=== PATIENT | female | born 1955 | race Caucasian/White ===

== ENCOUNTER → 2016-10-01 | Outpatient (REF) | payer SELFPAY | LOC: M LAB REF 09:11 | PROVIDERS: ATTEND Physician Assistant | DX: N39.0 Urinary tract infection, site not specified (principal) ==

== ENCOUNTER → 2017-02-28 | Outpatient (REF) | payer OTHER ==
[2017-02-28 11:27] LABS: MEAN CORPUSCULAR HEMOGLOBIN 31.7 pg (27.0-33.0); MEAN CORPUSCULAR HGB CONC 33.5 g/dl (32.0-36.5); MEAN CORPUSCULAR VOLUME 94.7 fl (80.0-96.0); RED CELL DISTRIBUTION WIDTH 13.9 % (11.5-14.5); WHITE BLOOD COUNT 9.8 K/mm3 (4.0-10.0)
[2017-02-28 12:35] LABS: ALBUMIN 3.5 GM/DL (3.2-5.2); ALBUMIN/GLOBULIN RATIO 0.95 (1.00-1.93); ALKALINE PHOSPHATASE 99 U/L (45-117); ALT/SGPT 31 U/L (12-78); ANION GAP 7 MEQ/L (8-16); AST/SGOT 18 U/L (15-37); BILIRUBIN,TOTAL 0.5 MG/DL (0.2-1.0); BLOOD UREA NITROGEN 12 MG/DL (7-18); CALCIUM LEVEL 8.9 MG/DL (8.8-10.2); CARBON DIOXIDE LEVEL 28 MEQ/L (21-32); CHLORIDE LEVEL 103 MEQ/L (98-107); CHOLESTEROL LEVEL 248 MG/DL (<200); CREATININE FOR GFR 0.73 MG/DL (0.55-1.02); GLOMERULAR FILTRATION RATE > 60.0 (>45); GLUCOSE, FASTING 100 MG/DL (80-110); POTASSIUM SERUM 4.4 MEQ/L (3.5-5.1); SODIUM LEVEL 138 MEQ/L (136-145); TOTAL PROTEIN 7.2 GM/DL (6.4-8.2); TRIGLYCERIDES LEVEL 385 MG/DL (<150)
== END ==
LOC: M SFHCCLAY 09:20
PROVIDERS: ATTEND Nurse Practitioner Family
DX: E78.4 Other hyperlipidemia (principal); I10 Essential (primary) hypertension

== ENCOUNTER → 2017-08-02 | Outpatient (REF) | payer OTHER ==
[~2017-08-02] MED LIST: ATEN100T PO; MOVE1TAB PO; ONE1MIS PO; ONETAB33 PO; SPIR25TA2 PO
[2017-08-02 12:13] LABS: POTASSIUM SERUM 3.9 MEQ/L (3.5-5.1)
== END ==
LOC: M SFHCCLAY 08:48
PROVIDERS: ATTEND Nurse Practitioner Family
DX: E87.6 Hypokalemia (principal); E78.4 Other hyperlipidemia

== ENCOUNTER → 2018-12-26 | Outpatient (REF) | payer OTHER ==
[~2018-12-26] MED LIST changes: +SPIR-10 PO; -SPIR25TA2 PO
[2018-12-26 11:31] LABS: BASO # 0.1 10^3/uL (0.0-0.2); BASO % 0.5 % (0.0-1.0); EOS # 0.3 10^3/uL (0.0-0.50); EOS % 3.4 % (0.0-3.0); HEMATOCRIT 46.2 % (36.0-47.0); HEMOGLOBIN 15.4 g/dl (12.0-15.5); LYMPH # 3.7 10^3/uL (1.5-4.5); LYMPH % 39.2 % (24.0-44.0); MEAN CORPUSCULAR HEMOGLOBIN 31.6 pg (27.0-33.0); MEAN CORPUSCULAR HGB CONC 33.3 g/dl (32.0-36.5); MEAN CORPUSCULAR VOLUME 94.9 fl (80.0-96.0); MONO # 0.7 10^3/uL (0.0-0.8); MONO % 7.2 % (0.0-5.0); NEUTROPHILS # 4.7 10^3/uL (1.8-7.7); NEUTROPHILS % 49.4 % (36.0-66.0); PLATELET COUNT, AUTOMATED 289 10^3/uL (150-450); RED BLOOD COUNT 4.87 10^6/uL (4.00-5.40); WHITE BLOOD COUNT 9.4 10^3/uL (4.0-10.0)
[2018-12-26 11:59] LABS: ALBUMIN 3.6 GM/DL (3.2-5.2); ALT/SGPT 27 U/L (12-78); BILIRUBIN,TOTAL 0.3 MG/DL (0.2-1.0); BLOOD UREA NITROGEN 19 MG/DL (7-18); CALCIUM LEVEL 8.3 MG/DL (8.8-10.2); CARBON DIOXIDE LEVEL 28 MEQ/L (21-32); CHLORIDE LEVEL 106 MEQ/L (98-107); CHOLESTEROL LEVEL 232 MG/DL (<200); CHOLESTEROL RISK RATIO 4.833 (<5); CREATININE FOR GFR 0.77 MG/DL (0.55-1.30); GLOMERULAR FILTRATION RATE > 60.0 (>45); GLUCOSE, FASTING 105 MG/DL (70-100); HDL CHOLESTEROL 48 MG/DL (>40); LDL CHOLESTEROL 118 MG/DL (<100); NON-HDL-C 184 MG/DL; SODIUM LEVEL 140 MEQ/L (136-145); TOTAL PROTEIN 6.9 GM/DL (6.4-8.2); TRIGLYCERIDES LEVEL 330 MG/DL (<150)
[2018-12-26 19:18] LABS: APPEARANCE, URINE HAZY (CLEAR); BACTERIA, URINE AUTO 1+ (NEGATIVE); BILIRUBIN, URINE AUTO NEGATIVE (NEGATIVE); BLOOD, URINE BLOOD 3+ (NEGATIVE); COLOR, URINE YELLOW (YELLOW); GLUCOSE, URINE (UA) AUTO NEGATIVE (NEGATIVE); KETONE, URINE AUTO NEGATIVE (NEGATIVE); LEUKOCYTE ESTERASE, URINE AUTO 1+ (NEGATIVE); MUCUS, URINE SMALL (NEGATIVE); NITRITE, URINE AUTO NEGATIVE (NEGATIVE); PROTEIN, URINE AUTO NEGATIVE (NEGATIVE); RBC, URINE AUTO 83 /HPF (0-3); SPECIFIC GRAVITY URINE AUTO 1.018 (1.002-1.035); SQUAMOUS EPITHELIAL CELL UR AU 0 /HPF (0-6); UROBILINOGEN, URINE AUTO 0.2 mg/dL (0.0-2.0); WBC, URINE AUTO 64 /HPF (0-3)
== END ==
LOC: M SFHCCLAY 07:30
PROVIDERS: ATTEND Nurse Practitioner Family
DX: M54.5 Low back pain (principal); E78.49 Other hyperlipidemia; R31.9 Hematuria, unspecified

== ENCOUNTER → 2019-01-03 | Outpatient (CLI) | payer OTHER ==
--- NOTE | 2019-01-03 13:55 | REP ---
Cervical spine seven views: There are no comparisons. Vertebral body heights, interspacing alignment are normal C1-C7. T1 is obscured by the shoulders. The facets are normally aligned. The prevertebral soft tissues are unremarkable. There is no listhesis on flexion or extension. The odontoid view is unremarkable. There is bilateral mild bony foraminal encroachment at C6-7 bilaterally. Impression: Mild bony foraminal encroachment at C6-7 bilaterally. Kilos obscured by the shoulders. Followup MRI might be considered for further evaluation of these findings. Electronically Signed by Mark Guillen MD 01/03/2019 01:46 P
--- NOTE | 2019-01-03 13:56 | REP ---
Right shoulder three views: There are no comparisons. There is acromioclavicular osteoarthritis. The glenohumeral joint is unremarkable. Mineralization is normal. There are no calcifications or foreign bodies. Impression: Acromioclavicular osteoarthritis. Electronically Signed by Mark Guillen MD 01/03/2019 01:47 P
--- NOTE | 2019-01-03 13:59 | REP ---
Lumbar spine five views: There are no comparisons. There are numerous bilateral calcifications, likely renal calcifications, however, some of the calcifications are projected over the right ureteral area. Follow-up CT might be considered for further evaluation of these calcifications. There are surgical clips in the abdominal right upper quadrant. Vertebral body heights, interspacing alignment are normal. The pedicles are unremarkable. The facets are unremarkable. The sacroiliac articulations are unremarkable. There are numerous calcifications in the pelvis, nonspecific, ureteral versus phleboliths. Impression: Essentially negative lumbar spine. However, there are numerous calcifications in the abdomen and pelvis as described, possibly renal/ureteral calculi. Follow-up CT may be considered for further evaluation. Electronically Signed by Mark Guillen MD 01/03/2019 01:50 P
== END ==
LOC: M CLY 12:33
PROVIDERS: ATTEND Nurse Practitioner Family
DX: M19.011 Primary osteoarthritis, right shoulder (principal); R93.89 Abnormal findings on diagnostic imaging of other specified body structures; R19.00 Intra-abdominal and pelvic swelling, mass and lump, unspecified site

== ENCOUNTER → 2019-01-13 | Outpatient (CLI) | payer OTHER ==
--- NOTE | 2019-01-13 14:18 | REP ---
RENAL ULTRASOUND: Real-time sonographic evaluation of the kidneys is performed. The kidneys are normal in size and echotexture, right kidney measuring 12.9 x 5.9 x 5.6 cm and left kidney 11.4 x 6.6 x 7.1 cm. There is mild right hydronephrosis. There is moderate left hydronephrosis. There are multiple bilateral intrarenal calculi. Largest on the right is in the renal pelvis 1.6 cm in diameter. A parapelvic cyst in the upper pole on the right measures 1.9 cm in diameter. There is an 8 mm cyst in the right lower pole. Exophytic cyst of the upper pole of the left kidney measures 5 cm in diameter. 2 cm calculus is seen in the region of the left renal pelvis. Multiple other smaller stones are seen bilaterally. The resistive index of the right kidney is 0.58 and of the left kidney 0.66 with duplex Doppler evaluation. Urinary bladder is empty. IMPRESSION: Mild right hydronephrosis. Moderate left hydronephrosis. Multiple bilateral renal calculi as discussed above as well as a few renal cysts. Electronically Signed by Mark Lucia MD 01/13/2019 05:42 P
== END ==
LOC: M RAD 10:53
PROVIDERS: ATTEND Nurse Practitioner Family
DX: N13.39 Other hydronephrosis (principal); N20.0 Calculus of kidney; N28.1 Cyst of kidney, acquired

== ENCOUNTER → 2019-01-24 | Outpatient (CLI) | payer OTHER ==
[2019-01-24 18:36] LABS: BLOOD UREA NITROGEN 14 MG/DL (7-18); CALCIUM LEVEL 8.8 MG/DL (8.8-10.2); CARBON DIOXIDE LEVEL 28 MEQ/L (21-32); CHLORIDE LEVEL 106 MEQ/L (98-107); CREATININE FOR GFR 0.72 MG/DL (0.55-1.30); GLOMERULAR FILTRATION RATE > 60.0 (>45); GLUCOSE, FASTING 98 MG/DL (70-100); SODIUM LEVEL 139 MEQ/L (136-145)
== END ==
LOC: M SMT 10:58
PROVIDERS: ATTEND Nurse Practitioner Family
DX: N20.0 Calculus of kidney (principal); R31.29 Other microscopic hematuria

== ENCOUNTER → 2019-01-31 | Outpatient (CLI) | payer OTHER ==
[~2019-01-31] MED LIST changes: +ISOVUE-370 76% 100ML VIAL (Q9967) As Ordered ONE
--- NOTE | 2019-01-31 10:59 | REP ---
REASON: Microscopic hematuria. COMPARISON: None. CONTRAST: [address] urography was also obtained. There is a curvilinear density in the left lung base likely fibrotic and/or subsegmental atelectatic change. There are no pleural or pericardial effusions. There is an incidental calcified granuloma in the right lower lobe. The precontrast enhanced portion of the examination shows hepatic and splenic densities to be within normal limits. Surgical clips are seen in the gallbladder fossa from previous cholecystectomy. Large calculi are seen in the renal collecting system and calices bilaterally, left greater than right, with the appearance of a developing staghorn calculus on the left possibly early development of a right sided staghorn calculus. There is bilateral caliceal dilatation, left greater than right. There is no hydroureter nor is there evidence of a more distal ureterolith. There is a low density structure arising from the interpolar region but somewhat superiorly and posteriorly left kidney which measures 4.6 cm and has near water Hounsfield unit readings. There are no urinary bladder calcifications. There are bilateral pelvic phleboliths. Contrast enhanced portion of the examination shows no enhancement or septations of the left renal cyst. Subcentimeter size focal areas of low density are also seen in the right kidney with an additional subcentimeter size focal area of low density in the left kidney and all suggestive of simple cysts but too small for precise CT characterization. There are no enhancing hepatic abnormalities. The pancreas, spleen, abdominal aorta, and para-aortic regions are within normal limits. There is bilateral adrenal gland thickening which is of uniform low density on the precontrast study indicating benignity. There is no free fluid or free air in the abdomen. There is descending colon diverticulosis. The appendix is well visualized and is within normal limits. There is no intra-abdominal mass or adenopathy. CT PELVIS: There is sigmoid colon diverticulosis. There is no free fluid or free air. There is no mass or adenopathy. Delayed imaging through the pelvis shows no evidence of urinary bladder filling defect, however not all of the urinary bladder was opacified. Bone window technique throughout the exam shows the osseous structures to be within normal limits for the patient's age. CT urography shows complete opacification of the right renal collecting system without opacification of the left ureter. IMPRESSION: 1. Bilateral renal calculi as described above. 2. Bilateral renal cysts as described above and all having the appearance of Bosniak class I cysts. 3. Benign bilateral adrenal gland thickening. 4. Colonic diverticulosis as described above. 5. CT urogram as described above. Electronically Signed by Ambrocio Cochran DO 01/31/2019 02:33 P
== END ==
LOC: M RAD 08:15
PROVIDERS: ATTEND Nurse Practitioner Family
DX: N20.0 Calculus of kidney (principal); N28.1 Cyst of kidney, acquired
CPT/HCPCS: 74178; Q9967

== ENCOUNTER 2019-03-08 09:48 | Emergency (ER) | payer OTHER ==
[~2019-03-08] VITALS: Ht 157.5 cm; Wt 90.9 kg
[~2019-03-08 09:48] MED LIST changes: -ISOVUE-370 76% 100ML VIAL (Q9967) As Ordered ONE
[2019-03-08] MEDS ORDERED: STOO100C PO (10:07)
[2019-03-08] MEDS ORDERED: OXYB5TAB10 PO (10:07)
[2019-03-08] MEDS ORDERED: TRAM50TA2 (10:07)
[2019-03-08] MEDS ORDERED: CIDA500T2 PO (10:07)
[2019-03-08 11:46] LABS: GLUCOSE, URINE (UA) MANUAL NEGATIVE (NEGATIVE); KETONE, URINE MANUAL OBSCURED mg/dL (NEGATIVE)
[2019-03-08 11:47] LABS: BILIRUBIN, URINE MANUAL OBSCURED (NEGATIVE); UROBILINOGEN, URINE MANUAL OBSCURED mg/dl (NORMAL)
[2019-03-08 11:50] LABS: BACTERIA, URINE SMALL AMOUNT; RBC, URINE TNTC /hpf (0-3); SQUAMOUS EPITHELIAL CELL URINE SMALL AMOUNT /hpf (SMALL AMT)
[2019-03-08 11:51] LABS: HYALINE CAST, URINE NONE SEEN /lpf (0-1)
[2019-03-08 12:04] VITALS: BP 171/79
== END 2019-03-08 12:00 | disposition home or self-care (01) ==
LOC: M ED 09:48
DX: Z48.89 Encounter for other specified surgical aftercare (principal); I10 Essential (primary) hypertension; Z79.899 Other long term (current) drug therapy; Z91.040 Latex allergy status; Z91.048 Other nonmedicinal substance allergy status

== ENCOUNTER → 2021-07-06 | Outpatient (REF) | payer OTHER ==
[~2021-07-06] MED LIST changes: +CIDA500T2 PO; +MM S100C PO; +OXYB5TAB10 PO; +TRAM50TA2
[2021-07-06 15:59] LABS: BASO # 0.1 10^3/uL (0.0-0.2); BASO % 0.6 % (0.0-1.0); EOS # 0.3 10^3/uL (0.0-0.5); EOS % 3.6 % (0.0-3.0); HEMATOCRIT 48.7 % (36.0-47.0); HEMOGLOBIN 15.7 g/dl (12.0-15.5); LYMPH # 1.9 10^3/uL (1.5-5.0); LYMPH % 22.2 % (24.0-44.0); MEAN CORPUSCULAR HEMOGLOBIN 31.4 pg (27.0-33.0); MEAN CORPUSCULAR HGB CONC 32.2 g/dl (32.0-36.5); MEAN CORPUSCULAR VOLUME 97.4 fl (80.0-96.0); MONO # 0.5 10^3/uL (0.0-0.8); MONO % 6.1 % (2.0-8.0); NEUTROPHILS # 5.8 10^3/uL (1.5-8.5); NEUTROPHILS % 67.2 % (36.0-66.0); PLATELET COUNT, AUTOMATED 269 10^3/uL (150-450); WHITE BLOOD COUNT 8.6 10^3/uL (4.0-10.0)
[2021-07-06 16:31] LABS: HEMOGLOBIN A1c 6.3 %
[2021-07-06 16:37] LABS: ALBUMIN 3.2 GM/DL (3.2-5.2); ALT/SGPT 31 U/L (12-78); BILIRUBIN,TOTAL 0.3 MG/DL (0.2-1.0); BLOOD UREA NITROGEN 19 MG/DL (7-18); CALCIUM LEVEL 8.9 MG/DL (8.8-10.2); CARBON DIOXIDE LEVEL 32 MEQ/L (21-32); CHLORIDE LEVEL 105 MEQ/L (98-107); CHOLESTEROL LEVEL 223 MG/DL (<200); CHOLESTEROL RISK RATIO 4.551 (<5); CREATININE FOR GFR 0.86 MG/DL (0.55-1.30); FREE T4 0.84 NG/DL (0.76-1.46); GLOMERULAR FILTRATION RATE > 60.0 (>45); GLUCOSE, FASTING 172 MG/DL (70-100); HDL CHOLESTEROL 49 MG/DL (>40); LDL CHOLESTEROL 119 MG/DL (<100); NON-HDL-C 174 MG/DL; POTASSIUM SERUM 4.5 MEQ/L (3.5-5.1); SODIUM LEVEL 141 MEQ/L (136-145); TOTAL PROTEIN 6.8 GM/DL (6.4-8.2); TRIGLYCERIDES LEVEL 276 MG/DL (<150)
== END ==
LOC: M SFHCCLAY 10:01
PROVIDERS: ATTEND Nurse Practitioner Family
DX: Z13.1 Encounter for screening for diabetes mellitus (principal); I10 Essential (primary) hypertension; E78.5 Hyperlipidemia, unspecified; E66.01 Morbid (severe) obesity due to excess calories; Z68.41 Body mass index [BMI] 40.0-44.9, adult

== ENCOUNTER → 2021-08-01 | Outpatient (CLI) | payer OTHER ==
--- NOTE | 2021-08-01 09:13 | REP ---
INDICATION: NICOTINE DEPENDENCE. COMPARISON: Lung windows from CT abdomen 01/31/2019 TECHNIQUE: Low-dose lung CT screening protocol FINDINGS: Lung d[place] are well inflated. Posterior basal segment of the left lower lobe, inferior lingular segment left upper lobe at the left lung base and medial segment of the right middle lobe at the right lung base there are curvilinear fibrotic changes similar to the previous study. There is no pleural effusion, pleural based mass or calcific pleural plaque. Some minimal cylindrical bronchiectasis is seen. There are few calcified granulomas in the right base with some of them capsular calcifications of the liver and another on the diaphragmatic surface posteriorly. No lung nodules or parenchymal mass. The bone windows were grossly intact. Calcifications in the aorta without aneurysm. No gross cardiomegaly. IMPRESSION: 1. Lung RADS category 1, negative. No nodules or definite benign nodule seen. Patients in this category of scan have less than 1% chance of malignancy at the time of the examination. For patients at high risk of malignancy, continual annual screening with low-dose CT in 12 months. <Electronically signed by Jose Daniel Rogers > 08/01/21 [id number]
== END ==
LOC: M RAD 08:30
PROVIDERS: ATTEND Nurse Practitioner Family
DX: F17.210 Nicotine dependence, cigarettes, uncomplicated (principal)

== ENCOUNTER → 2021-10-21 | Outpatient (CLI) | payer OTHER | LOC: M PLAIMG 12:37 | PROVIDERS: ATTEND Nurse Practitioner Family | DX: J32.0 Chronic maxillary sinusitis (principal) ==

== ENCOUNTER → 2021-12-27 | Outpatient (REF) | payer OTHER ==
[2021-12-27 16:29] LABS: ALBUMIN 3.4 GM/DL (3.2-5.2); ALT/SGPT 33 U/L (12-78); BILIRUBIN,TOTAL 0.3 MG/DL (0.2-1.0); BLOOD UREA NITROGEN 16 MG/DL (7-18); CALCIUM LEVEL 9.3 MG/DL (8.8-10.2); CARBON DIOXIDE LEVEL 32 MEQ/L (21-32); CHLORIDE LEVEL 105 MEQ/L (98-107); CREATININE FOR GFR 0.82 MG/DL (0.55-1.30); GLOMERULAR FILTRATION RATE > 60.0 (>45); GLUCOSE, FASTING 100 MG/DL (70-100); POTASSIUM SERUM 4.6 MEQ/L (3.5-5.1); SODIUM LEVEL 141 MEQ/L (136-145); TOTAL PROTEIN 7.2 GM/DL (6.4-8.2)
[2021-12-27 17:02] LABS: HEMOGLOBIN A1c 6.2 %
== END ==
LOC: M SFHCCLAY 10:36
PROVIDERS: ATTEND Nurse Practitioner Family
DX: I10 Essential (primary) hypertension (principal); R73.03 Prediabetes

== ENCOUNTER → 2022-07-12 | Outpatient (REF) | payer MEDICARE ==
[2022-07-12 18:18] LABS: BASO # 0.1 10^3/uL (0.0-0.2); BASO % 0.7 % (0.0-1.0); EOS # 0.3 10^3/uL (0.0-0.5); EOS % 2.7 % (0.0-3.0); HEMATOCRIT 48.3 % (36.0-47.0); HEMOGLOBIN 15.6 g/dl (12.0-15.5); LYMPH # 2.8 10^3/uL (1.5-5.0); MEAN CORPUSCULAR HGB CONC 32.3 g/dl (32.0-36.5); MEAN CORPUSCULAR VOLUME 99.2 fl (80.0-96.0); MONO # 0.7 10^3/uL (0.0-0.8); MONO % 7.1 % (2.0-8.0); NEUTROPHILS # 5.7 10^3/uL (1.5-8.5); NEUTROPHILS % 60.2 % (36.0-66.0); PLATELET COUNT, AUTOMATED 276 10^3/uL (150-450); RED BLOOD COUNT 4.87 10^6/uL (4.00-5.40); WHITE BLOOD COUNT 9.5 10^3/uL (4.0-10.0)
[2022-07-12 18:52] LABS: ALBUMIN 3.4 GM/DL (3.2-5.2); ALT/SGPT 34 U/L (12-78); BILIRUBIN,TOTAL 0.4 MG/DL (0.2-1.0); BLOOD UREA NITROGEN 14 MG/DL (7-18); CALCIUM LEVEL 8.9 MG/DL (8.8-10.2); CARBON DIOXIDE LEVEL 27 MEQ/L (21-32); CHLORIDE LEVEL 106 MEQ/L (98-107); CHOLESTEROL LEVEL 218 MG/DL (<200); CHOLESTEROL RISK RATIO 4.638 (<5); CREATININE FOR GFR 0.85 MG/DL (0.55-1.30); FREE T4 0.79 NG/DL (0.76-1.46); GLOMERULAR FILTRATION RATE > 60.0 (>45); GLUCOSE, FASTING 108 MG/DL (70-100); HDL CHOLESTEROL 47 MG/DL (>40); LDL CHOLESTEROL 94 MG/DL (<100); NON-HDL-C 171 MG/DL; POTASSIUM SERUM 4.5 MEQ/L (3.5-5.1); SODIUM LEVEL 139 MEQ/L (136-145); TRIGLYCERIDES LEVEL 387 MG/DL (<150)
[2022-07-12 18:53] LABS: HEMOGLOBIN A1c 6.5 %
== END ==
LOC: M SFHCCLAY 11:11
PROVIDERS: ATTEND Nurse Practitioner Family
DX: I10 Essential (primary) hypertension (principal); E78.5 Hyperlipidemia, unspecified; E66.01 Morbid (severe) obesity due to excess calories; Z68.41 Body mass index [BMI] 40.0-44.9, adult; R73.03 Prediabetes

== ENCOUNTER → 2022-10-20 | Outpatient (REF) | payer MEDICARE ==
[2022-10-20 17:39] LABS: ALBUMIN 3.4 G/DL (3.2-5.2); ALKALINE PHOSPHATASE 110 U/L (46-116); ALT/SGPT 34 U/L (7.0-40); AST/SGOT 26 U/L (<34); BILIRUBIN,TOTAL 0.4 MG/DL (0.3-1.2); BLOOD UREA NITROGEN 14 MG/DL (9-23); CALCIUM LEVEL 8.6 MG/DL (8.3-10.6); CARBON DIOXIDE LEVEL 30 MMOL/L (20-31); CHLORIDE LEVEL 103 MMOL/L (98-107); CHOLESTEROL LEVEL 161 MG/DL (<200); CHOLESTEROL RISK RATIO 3.23 (<5); CREATININE FOR GFR 0.76 MG/DL (0.55-1.30); GLOMERULAR FILTRATION RATE > 60.0 (>45); GLUCOSE, FASTING 115 MG/DL (74-106); HDL CHOLESTEROL 49.7 MG/DL (>40); LDL CHOLESTEROL 40.5 MG/DL (<100); NON-HDL-C 111 MG/DL; POTASSIUM SERUM 4.4 MMOL/L (3.5-5.1); SODIUM LEVEL 140 MMOL/L (136-145); TOTAL PROTEIN 6.6 G/DL (5.7-8.2); TRIGLYCERIDES LEVEL 354 MG/DL (<150)
[2022-10-20 18:46] LABS: HEMOGLOBIN A1c 6.2 % (4.0-6.0)
== END ==
LOC: M SFHCCLAY 10:42
PROVIDERS: ATTEND Nurse Practitioner Family
DX: E11.9 Type 2 diabetes mellitus without complications (principal)

== ENCOUNTER → 2022-10-24 | Outpatient (CLI) | payer MEDICARE | LOC: M RAD 08:39 | PROVIDERS: ATTEND Nurse Practitioner Family | DX: Z12.2 Encounter for screening for malignant neoplasm of respiratory organs (principal); F17.210 Nicotine dependence, cigarettes, uncomplicated; I70.0 Atherosclerosis of aorta; I25.10 Atherosclerotic heart disease of native coronary artery without angina pectoris; Z90.49 Acquired absence of other specified parts of digestive tract; K44.9 Diaphragmatic hernia without obstruction or gangrene; M51.34 Other intervertebral disc degeneration, thoracic region; J43.9 Emphysema, unspecified ==

== ENCOUNTER → 2022-11-10 | Outpatient (CLI) | payer MEDICARE | LOC: M RAD 14:32 | PROVIDERS: ATTEND Nurse Practitioner Family | DX: I70.90 Unspecified atherosclerosis (principal); R09.89 Other specified symptoms and signs involving the circulatory and respiratory systems ==

== ENCOUNTER → 2022-11-14 | Outpatient (CLI) | payer MEDICARE ==
[~2022-11-14] MED LIST changes: +ISOVUE-370 76% 100ML VIAL As Ordered ONE
== END ==
LOC: M RAD 09:34
PROVIDERS: ATTEND Nurse Practitioner Family
DX: I70.0 Atherosclerosis of aorta (principal)
CPT/HCPCS: 75635; Q9967

== ENCOUNTER → 2023-01-09 | Outpatient (REF) | payer MEDICARE ==
[~2023-01-09] MED LIST changes: -ISOVUE-370 76% 100ML VIAL As Ordered ONE
[2023-01-09 12:13] LABS: ALBUMIN 3.5 G/DL (3.2-5.2); ALKALINE PHOSPHATASE 107 U/L (46-116); ALT/SGPT 24 U/L (7.0-40); AST/SGOT 16 U/L (<34); BILIRUBIN,TOTAL 0.3 MG/DL (0.3-1.2); BLOOD UREA NITROGEN 17 MG/DL (9-23); CALCIUM LEVEL 8.7 MG/DL (8.3-10.6); CARBON DIOXIDE LEVEL 31 MMOL/L (20-31); CHLORIDE LEVEL 104 MMOL/L (98-107); CREATININE FOR GFR 0.83 MG/DL (0.55-1.30); GLOMERULAR FILTRATION RATE > 60.0 (>45); GLUCOSE, FASTING 112 MG/DL (74-106); POTASSIUM SERUM 4.2 MMOL/L (3.5-5.1); SODIUM LEVEL 140 MMOL/L (136-145)
[2023-01-09 13:39] LABS: HEMOGLOBIN A1c 6.3 % (4.0-6.0)
== END ==
LOC: M SFHCCLAY 07:42
PROVIDERS: ATTEND Nurse Practitioner Family
DX: E11.9 Type 2 diabetes mellitus without complications (principal)

== ENCOUNTER → 2023-05-07 | Outpatient (CLI) | payer MEDICARE | LOC: M CLY 12:08 | PROVIDERS: ATTEND Nurse Practitioner Family | DX: M19.012 Primary osteoarthritis, left shoulder (principal) ==

== ENCOUNTER → 2023-11-27 | Outpatient (CLI) | payer MEDICARE ==
[~2023-11-27] MED LIST changes: -OXYB5TAB10 PO; +OXYB5TAB14 PO
== END ==
LOC: M RAD 12:52
PROVIDERS: ATTEND Nurse Practitioner Family
DX: I83.893 Varicose veins of bilateral lower extremities with other complications (principal); I73.9 Peripheral vascular disease, unspecified

== ENCOUNTER → 2023-12-11 | Outpatient (CLI) | payer MEDICARE | LOC: M RAD 06:56 | PROVIDERS: ATTEND Nurse Practitioner Family | DX: Z12.2 Encounter for screening for malignant neoplasm of respiratory organs (principal); F17.218 Nicotine dependence, cigarettes, with other nicotine-induced disorders; I25.10 Atherosclerotic heart disease of native coronary artery without angina pectoris ==

== ENCOUNTER → 2023-12-25 | Outpatient (REF) | payer MEDICARE ==
[2023-12-25 14:25] LABS: ALBUMIN 3.3 G/DL (3.2-5.2); ALKALINE PHOSPHATASE 121 U/L (46-116); ALT/SGPT 31 U/L (7.0-40); AST/SGOT 27 U/L (<34); BILIRUBIN,TOTAL 0.4 MG/DL (0.3-1.2); BLOOD UREA NITROGEN 15 MG/DL (9-23); CALCIUM LEVEL 9.4 MG/DL (8.3-10.6); CARBON DIOXIDE LEVEL 29 MMOL/L (20-31); CHLORIDE LEVEL 105 MMOL/L (98-107); CREATININE FOR GFR 0.74 MG/DL (0.55-1.30); GLOMERULAR FILTRATION RATE > 60.0 (>45); GLUCOSE, FASTING 129 MG/DL (74-106); POTASSIUM SERUM 4.3 MMOL/L (3.5-5.1); SODIUM LEVEL 136 MMOL/L (136-145); TOTAL PROTEIN 6.9 G/DL (5.7-8.2)
[2023-12-25 14:33] LABS: HEMOGLOBIN A1c 6.6 % (4.0-6.0)
== END ==
LOC: M SFHCCLAY 10:14
PROVIDERS: ATTEND Nurse Practitioner Family
DX: E11.9 Type 2 diabetes mellitus without complications (principal)

== ENCOUNTER → 2024-06-25 | Outpatient (REF) | payer MEDICARE ==
[2024-06-25 17:29] LABS: BASO # 0.1 10^3/uL (0.0-0.2); BASO % 0.6 % (0.0-1.0); EOS # 0.2 10^3/uL (0.0-0.5); EOS % 1.8 % (0.0-3.0); HEMATOCRIT 46.8 % (36.0-47.0); HEMOGLOBIN 14.9 g/dl (12.0-15.5); LYMPH # 2.2 10^3/uL (1.5-5.0); LYMPH % 22.4 % (24.0-44.0); MEAN CORPUSCULAR HEMOGLOBIN 31.4 pg (27.0-33.0); MEAN CORPUSCULAR HGB CONC 31.8 g/dl (32.0-36.5); MEAN CORPUSCULAR VOLUME 98.5 fl (80.0-96.0); MONO # 0.7 10^3/uL (0.0-0.8); MONO % 6.7 % (2.0-8.0); NEUTROPHILS # 6.8 10^3/uL (1.5-8.5); NEUTROPHILS % 68.2 % (36.0-66.0); PLATELET COUNT, AUTOMATED 259 10^3/uL (150-450); RED BLOOD COUNT 4.75 10^6/uL (4.00-5.40)
[2024-06-25 18:06] LABS: ALBUMIN 3.4 G/DL (3.2-5.2); ALKALINE PHOSPHATASE 135 U/L (46-116); ALT/SGPT 27 U/L (7.0-40); AST/SGOT 16 U/L (<34); BILIRUBIN,TOTAL 0.4 MG/DL (0.3-1.2); BLOOD UREA NITROGEN 10 MG/DL (9-23); CALCIUM LEVEL 9.1 MG/DL (8.3-10.6); CARBON DIOXIDE LEVEL 31 MMOL/L (20-31); CHLORIDE LEVEL 106 MMOL/L (98-107); CHOLESTEROL LEVEL 134 MG/DL (<200); CHOLESTEROL RISK RATIO 3.08 (<5); CREATININE FOR GFR 0.74 MG/DL (0.55-1.30); CREATININE, URINE 155.7 MG/DL; GLOMERULAR FILTRATION RATE > 60.0 (>45); GLUCOSE, FASTING 121 MG/DL (74-106); HDL CHOLESTEROL 43.4 MG/DL (>40); LDL CHOLESTEROL 50.2 MG/DL (<100); MAU/CREAT RATIO 4.4 MCG/MG (0.0-30.0); NON-HDL-C 90.6 MG/DL; POTASSIUM SERUM 4.8 MMOL/L (3.5-5.1); SODIUM LEVEL 140 MMOL/L (136-145); TOTAL PROTEIN 6.9 G/DL (5.7-8.2); TRIGLYCERIDES LEVEL 202 MG/DL (<150)
[2024-06-25 18:07] LABS: FREE T4 1.08 NG/DL (0.89-1.76)
[2024-06-25 18:08] LABS: THYROID STIMULATING HORMONE 3.977 uIU/ML (0.55-4.78)
[2024-06-25 18:25] LABS: HEMOGLOBIN A1c 6.8 % (4.0-6.0)
== END ==
LOC: M SFHCCLAY 09:13
PROVIDERS: ATTEND Nurse Practitioner Family
DX: Z00.00 Encounter for general adult medical examination without abnormal findings (principal); E66.01 Morbid (severe) obesity due to excess calories; Z68.41 Body mass index [BMI] 40.0-44.9, adult; E11.9 Type 2 diabetes mellitus without complications; I10 Essential (primary) hypertension; E78.5 Hyperlipidemia, unspecified

== ENCOUNTER → 2024-12-24 | Outpatient (REF) | payer MEDICARE ==
[2024-12-24 19:27] LABS: HEMOGLOBIN A1c 6.8 % (4.0-6.0)
[2024-12-24 19:48] LABS: ALBUMIN 3.4 G/DL (3.2-5.2); ALKALINE PHOSPHATASE 121 U/L (35-104); ALT/SGPT 31 U/L (7.0-40); AST/SGOT 27 U/L (<34); BILIRUBIN,TOTAL 0.6 MG/DL (0.3-1.2); BLOOD UREA NITROGEN 11 MG/DL (9-23); CALCIUM LEVEL 8.9 MG/DL (8.3-10.6); CARBON DIOXIDE LEVEL 29 MMOL/L (20-31); CHLORIDE LEVEL 104 MMOL/L (98-107); CREATININE FOR GFR 0.68 MG/DL (0.55-1.30); GLOMERULAR FILTRATION RATE > 60.0 (>45); GLUCOSE, FASTING 119 MG/DL (74-106); POTASSIUM SERUM 4.8 MMOL/L (3.5-5.1); SODIUM LEVEL 140 MMOL/L (136-145); TOTAL PROTEIN 7.1 G/DL (5.7-8.2)
== END ==
LOC: M SFHCCLAY 09:06
PROVIDERS: ATTEND Nurse Practitioner Family
DX: Z00.00 Encounter for general adult medical examination without abnormal findings (principal)

== ENCOUNTER → 2025-05-08 | Outpatient (CLI) | payer MEDICARE | LOC: M RAD 12:31 | PROVIDERS: ATTEND Nurse Practitioner Family | DX: Z12.2 Encounter for screening for malignant neoplasm of respiratory organs (principal); F17.218 Nicotine dependence, cigarettes, with other nicotine-induced disorders ==

== ENCOUNTER → 2025-06-25 | Outpatient (REF) | payer MEDICARE ==
[2025-06-25 12:52] LABS: BASO # 0.1 10^3/uL (0.0-0.2); BASO % 0.6 % (0.0-1.0); EOS # 0.3 10^3/uL (0.0-0.5); EOS % 2.9 % (0.0-3.0); LYMPH # 2.6 10^3/uL (1.5-5.0); LYMPH % 25.0 % (24.0-44.0); MONO # 0.6 10^3/uL (0.0-0.8); MONO % 5.3 % (2.0-8.0); NEUTROPHILS # 7.0 10^3/uL (1.5-8.5); NEUTROPHILS % 65.7 % (36.0-66.0); PLATELET COUNT, AUTOMATED 263 10^3/uL (150-450)
[2025-06-25 13:16] LABS: CREATININE, URINE 110.2 MG/DL; MALB URINE SIEMENS 6.0 MG/L; MAU/CREAT RATIO 5.4 MCG/MG (0.0-30.0)
[2025-06-25 13:18] LABS: ALT/SGPT 36.0 U/L (7.0-40); AST/SGOT 26.0 U/L (<34); CALCIUM LEVEL 8.5 MG/DL (8.3-10.6); CARBON DIOXIDE LEVEL 28.0 MMOL/L (20-31); CHLORIDE LEVEL 102.0 MMOL/L (98-107); CHOLESTEROL LEVEL 147.0 MG/DL (<200); CHOLESTEROL RISK RATIO 2.84 (<5); CREATININE FOR GFR 0.76 MG/DL (0.55-1.30); GLOMERULAR FILTRATION RATE 85.3 (>45); LDL CHOLESTEROL 45.3 MG/DL (<100); NON-HDL-C 95.3 MG/DL; POTASSIUM SERUM 4.3 MMOL/L (3.5-5.1); SODIUM LEVEL 137.0 MMOL/L (136-145); TRIGLYCERIDES LEVEL 250.0 MG/DL (<150)
[2025-06-25 13:20] LABS: FREE T4 0.99 NG/DL (0.89-1.76)
[2025-06-25 13:49] LABS: ESTIMATED AVERAGE GLUCOSE 169.0 MG/DL (60-110)
== END ==
LOC: M SFHCCLAY 08:29
PROVIDERS: ATTEND Nurse Practitioner Family
DX: Z00.00 Encounter for general adult medical examination without abnormal findings (principal); E66.01 Morbid (severe) obesity due to excess calories; Z68.41 Body mass index [BMI] 40.0-44.9, adult; I10 Essential (primary) hypertension; E78.5 Hyperlipidemia, unspecified; Z13.21 Encounter for screening for nutritional disorder; E11.51 Type 2 diabetes mellitus with diabetic peripheral angiopathy without gangrene